=== PATIENT | male | born 1930 | race Caucasian/White ===

== ENCOUNTER 2020-08-28 12:06 | Observation (INO) | payer MEDICARE, OTHER ==
[~2020-08-28] VITALS: Ht 193 cm; Wt 111.0 kg
[2020-08-28] MEDS: SODIUM CHLORIDE 0.9% 1,000 ML IV SCH ×2 (13:00→21:00)
[2020-08-28] MEDS ORDERED: CEFAZOLIN PMX 1GM/50ML 50 ML ONE (13:03)
[2020-08-28] MEDS ORDERED: MIDAZOLAM 1 MG/ML, 5ML ONE (13:03)
[2020-08-28] MEDS ORDERED: FENTANYL PF 100 MCG/2ML ONE (13:03)
[2020-08-28] MEDS ORDERED: LIDOCAINE 1%, 20ML ONE (13:04)
[2020-08-28] MEDS ORDERED: CEFAZOLIN 1,000 MG ONE (13:04)
[2020-08-28] MEDS ORDERED: POTA10TA PO (13:13)
[2020-08-28] MEDS ORDERED: CHLO25TA PO (13:13)
[2020-08-28] MEDS ORDERED: APIX5TAB PO (13:13)
[2020-08-28] MEDS ORDERED: ACET650S21 PO (13:13)
[2020-08-28 13:40] LABS: BASOPHILS % (AUTO) 1 % (0-1); EOSINOPHILS % (AUTO) 2 % (1-7); LYMPHOCYTES % (AUTO) 22 % (22-44); MEAN CORPUSCULAR HEMOGLOBIN 30.8 pg (27.5-34.5); MEAN CORPUSCULAR HGB CONC 33.7 g/dL (33.2-36.2); MEAN PLATELET VOLUME 9.5 fL (7.4-10.4); MONOCYTES % (AUTO) 10 % (2-9); NEUTROPHILS % (AUTO) 66 % (42-75); PLATELET COUNT 174 x10^3/uL (130-400); RED BLOOD COUNT 4.86 x10^6/uL (4.38-5.82); RED CELL DISTRIBUTION WIDTH 14.7 % (9.4-14.8)
[2020-08-28 13:44] LABS: MD NO
[2020-08-28] MEDS ORDERED: LIDOCAINE 2%, 20ML ONE (13:47)
[2020-08-28 13:48] LABS: CALCIUM 8.8 mg/dL (8.5-10.1); CHLORIDE 107 mmol/L (98-107); CREATININE 1.12 mg/dL (0.7-1.3)
[2020-08-28 14:02] LABS: ANION GAP 4 mmol/L (5-15)
[2020-08-28] MEDS ORDERED: HOLD MEDICATION MC PRN (14:30)
[2020-08-28] MEDS ORDERED: ACETAMINOPHEN 650 MG/20.3 ML UDC PO PRN (14:30)
[2020-08-28] MEDS ORDERED: ACETAMINOPHEN 325 MG TABLET PO PRN (14:30)
[2020-08-28] MEDS ORDERED: HYDROcodone/APAP 5/325 TABLET PO PRN (14:30)
[2020-08-28] MEDS ORDERED: CHLORTHALIDONE 25 MG TABLET PO ONE (15:08)
[2020-08-28 16:41] VITALS: BP 152/69
[2020-08-28] MEDS: APIXABAN 5 MG TABLET PO SCH (19:50)
[2020-08-28 20:19] VITALS: BP 138/93
[2020-08-28] MEDS: CEFAZOLIN PMX 1GM/50ML 50 ML IVPB SCH (22:29)
[2020-08-28] MEDS: SODIUM CHLORIDE FLUSH 10ML SYR IVF SCH (22:30)
[2020-08-29 02:30] VITALS: BP 123/73
[2020-08-29] MEDS: SODIUM CHLORIDE 0.9% 1,000 ML IV SCH (05:00)
[2020-08-29] MEDS: CEFAZOLIN PMX 1GM/50ML 50 ML IVPB SCH (06:00)
[2020-08-29 07:50] VITALS: BP 128/75
[2020-08-29] MEDS: APIXABAN 5 MG TABLET PO SCH (08:10)
[2020-08-29] MEDS: SODIUM CHLORIDE FLUSH 10ML SYR IVF SCH (08:46)
[2020-08-29] MEDS ORDERED: POTASSIUM CHLORIDE 10 MEQ TABLET.ER PO SCH (09:00)
== END 2020-08-29 10:54 | disposition home or self-care (01) ==
LOC: CACL 12:06 → 5SO 14:12 → DCLOUNGE 08-29 10:29
PROVIDERS: ADMIT Internal Medicine Cardiovascular Disease; ATTEND Internal Medicine Cardiovascular Disease
DX: I44.2 Atrioventricular block, complete (principal); I49.5 Sick sinus syndrome; I48.91 Unspecified atrial fibrillation; Z79.01 Long term (current) use of anticoagulants; Z79.899 Other long term (current) drug therapy
CPT/HCPCS: 33208; 36415; 71045; 71046; 80048; 85025; 96365; 96366; 99156; 99157; C1779; C1786; C1892; G0378; J0690; J2250; J3010; J3490